=== PATIENT | female | born 1970 | race Caucasian/White ===

== ENCOUNTER 2022-07-28 20:44 | Observation (INO) ==
--- NOTE | 2022-07-28 20:52 | Emergency Department Note ---
HPI General Chief complaint: Recheck/Abnormal Lab/Rx Stated complaint: pcp want her to come low H&H labs Time Seen by Provider: 07/28/22 20:47 Source: patient Mode of arrival: ambulatory Limitations: no limitations History of Present Illness HPI Narrative: Narrative: Patient is a 52-year-old female with a history of uterine mass, menorrhagia, and anemia who presents to the emergency department due to severe anemia. She states that a month ago she was found to be anemic, and it was thought at that time that it was due to her menstrual period. She states that she did not need a transfusion at that time, but an ultrasound was ordered. This has been performed and did demonstrate a uterine mass. A referral has been placed for [facility] follow-up for this reason. She states that she again had a heavy period, and does continue to have some bleeding at this time, but she states that it is improving, and is not significant at this time. She endorses intermittent lightheadedness and dyspnea on exertion. She denies any other symptoms at this time. Related Data Home Medications Medication Instructions Recorded Confirmed diphenhydramine 25 1 tab PO QHS PRN 05/13/21 07/28/22 mg-acetaminophen 500 mg tablet (Tylenol PM Extra Strength) ascorbic acid (vitamin C) PO Q2D 07/28/22 07/28/22 biotin PO QDAY 07/28/22 07/28/22 ferrous sulfate [Iron (ferrous PO Q2D 07/28/22 07/28/22 sulfate)] [id number]-lutein PO QDAY 07/28/22 07/28/22 [Multivitamin Women 50 Plus] vitamin D3-vitamin K2 PO QDAY 07/28/22 07/28/22 Allergies Allergy/AdvReac Type Severity Reaction Status Date / Time No Known Drug Allergies Allergy Verified 07/28/22 15:07 Review of Systems ROS ROS Narrative: Narrative: Constitutional: Denies fever or weakness Eyes: Denies vision change ENT ED: Denies hearing loss Cardiovascular: Reports dyspnea on exertion; Denies chest pain, orthopnea or edema Respiratory: Denies shortness of breath or cough Gastrointestinal: Denies abdominal pain, nausea, vomiting, diarrhea, constipation, hematochezia, melena or hematemesis Genitourinary: Reports abnormal menses; Denies discharge Musculoskeletal: Denies back pain or myalgia Neurological: Reports dizziness; Denies headache, weakness, numbness, confusion or abnormal gait [facility] Narrative Patient History Narrative: Narrative: Medical/Surgical/Family History All Active Problems (Updated 07/29/22 @ 02:20 by Italo Lawson MD) Anemia (Acute) Abnormal uterine bleeding (Acute) Uterine mass (Acute) Menorrhagia (Acute) Generalized anxiety disorder (Acute) Grief (Chronic) Viral syndrome (Acute) Calcific tendonitis of right shoulder (Chronic) Impingement syndrome of left shoulder (Chronic) Shoulder pain (Chronic) Adhesive capsulitis of left shoulder (Chronic) Injury of left shoulder (Chronic) Synovitis of left shoulder (Chronic) BMI 38.0-38.9,adult (Chronic) KOFFI (obstructive sleep apnea) (Chronic) Gastroesophageal reflux disease without esophagitis (Chronic) Panic disorder (Chronic) MRSA (methicillin resistant Staphylococcus aureus) (Chronic) Depression, major, recurrent (Chronic) Knee joint pain (Chronic) Joint pain (Chronic) Anxiety (Chronic) Acid reflux (Chronic) Medical History Acid reflux Adhesive capsulitis of left shoulder Anxiety BMI 38.0-38.9,adult Calcific tendonitis of right shoulder Depression, major, recurrent Gastroesophageal reflux disease without esophagitis Impingement syndrome of left shoulder Injury of left shoulder Joint pain Knee joint pain MRSA (methicillin resistant Staphylococcus aureus) Left axillary region KOFFI (obstructive sleep apnea) Panic disorder Shoulder pain Synovitis of left shoulder Viral syndrome Surgical History History of 3 sections 89, 92, & 2004 History of bilateral tubal ligation Family History Mother Arthritis Type 2 diabetes mellitus High blood pressure Congestive heart failure Coronary artery disease Family/Other Stomach cancer Paternal grandparent Heart attack Maternal Uncle Father High blood pressure Heart attack Sleep apnea Grandfather Heart attack Maternal & Paternal Social History Smoking Status: Never smoker Alcohol Intake Frequency: a few times a month Substance Use: does not use Exam Narrative Narrative: Narrative: General Limitations: no limitations General appearance: Present alert and in no apparent distress; Absent anxious, appears intoxicated or sleepy Head Head: Present atraumatic and normocephalic Eye Eye: Present PERRL and EOMI; Absent scleral icterus or nystagmus ENT ENT: Present mucous membranes moist Neck Neck: Present full ROM and trachea midline Chest Chest: Present normal inspection and symmetric chest wall rise Respiratory Respiratory: Present normal lung sounds bilaterally; Absent respiratory distress, rales/crackles, wheezes, stridor or accessory muscle use Cardiovascular Cardiovascular: Present regular rate, normal rhythm and normal heart sounds Adbominal Abdominal: Absent distention Extremities Extremities: Present normal inspection and full ROM; Absent pedal edema or pretibial edema Back Back: Present normal inspection and full ROM Neurological Neurological: Present alert, oriented X3, CN II-XII intact, normal gait and reflexes normal; Absent motor sensory deficit Psychiatric Psychiatric: Present normal affect and normal mood Skin Skin: Present warm (WNL), dry and normal color Course Vital Signs Vital signs: Vital Signs Temperature 97.9 F 07/28/22 20:45 Pulse Rate 74 07/28/22 20:45 Respiratory Rate 18 07/28/22 20:45 Blood Pressure 118/61 07/28/22 20:45 Pulse Oximetry (%) 98 07/28/22 20:45 Oxygen Delivery Method Room Air 07/28/22 20:45 Temperature 98.6 F 07/29/22 00:49 Pulse Rate 57 L 07/29/22 00:49 Respiratory Rate 20 07/29/22 00:49 Blood Pressure 129/62 07/29/22 00:49 Pulse Oximetry (%) 100 07/29/22 00:49 Oxygen Delivery Method Room Air 07/29/22 00:49 MDM MDM Narrative Medical decision making narrative: Narrative: Patient is a 52-year-old female who presents to the emergency department due to severe anemia. This anemia is likely due to abnormal uterine bleeding. I have spoken to CLINICAL LAB CLERK and they have recommended Provera 20 mg twice daily. They asked for transfusion of 4 units of PRBCs. I have spoken to Dr. Weber regarding admission and he has agreed to admit patient. Lab Data 07/28/22 20:57 Labs: Lab Results 07/28/22 07/28/22 07/28/22 Range/Units 20:57 20:57 21:03 WBC 10.9 (4.5-11.0) K/mcL RBC 2.67 L (3.59-5.38) M/mcL Hgb 4.8 L* (11.2-15.7) g/dL Hct 18.1 L* (34.1-44.9) % POC Hct 20.0 L* (36-48) MCV 67.8 L (80.0-100.0) fL MCH 18.0 L (26.0-34.0) pg MCHC 26.5 L (31.0-36.0) g/dL RDW 19.0 H (11.5-14.5) % Plt Count 387 (140-440) K/mcL MPV 10.1 (8.8-12.5) fL Immature Gran % (Auto) 0.4 (0.0-0.5) % Neut % (Auto) 60.0 (38.0-78.0) % Lymph % (Auto) 28.8 (15.5-49.0) % [place] % (Auto) 6.5 (1.0-12.0) % Eos % (Auto) 3.7 (0.0-7.0) % Baso % (Auto) 0.6 (0.0-2.0) % Lymph # (Auto) 3.12 (1.50-4.80) K/mcL [place] # (Auto) 0.71 (0.10-0.90) K/mcL Eos # (Auto) 0.40 (0.00-0.70) K/mcL Baso # (Auto) 0.07 (0.00-0.30) K/mcL Immature Gran # 0.04 (0.00-0.05) K/mcl Absolute Neutrophils 6.51 (1.80-8.00) K/mcL PT 13.4 (11.9-14.5) sec INR 1.0 (0.9-1.1) APTT 24.0 (20.0-37.0) sec POC Sodium 140 (133-145) POC Potassium 3.9 (3.3-5.1) POC Chloride 104 (96-108) POC Total CO2 26.0 (22-30) POC Anion Gap 15.0 (8.0-16.0) POC BUN 22 H (6-20) POC Creatinine 0.7 (0.6-1.2) POC Glucose 98 (70-105) POC WB Ioniz Calcium 1.17 (1.16-1.32) Discharge Plan Patient/Caregiver Discharge Instructions Pt seen by [facility] WORKER/PA only: No Clinical Impression: Anemia, Abnormal uterine bleeding Patient Disposition: Xfer As Inpt ([facility]) Condition: Undetermined Discharge Date/Time: 07/29/22 00:49
[2022-07-28 21:05] LABS: POC Calcium, Ionized 1.17 (1.16-1.32); POC Creatinine 0.7 (0.6-1.2); POC Potassium 3.9 (3.3-5.1)
[2022-07-28] MEDS ORDERED: 0.9 % SODIUM CHLORIDE 250 ML IV SCH ×2 (21:30→23:45)
[2022-07-28] MEDS ORDERED: IBUPROFEN 600 MG TABLET PO ONE (21:58)
[2022-07-28 22:51] LABS: Basophils # (Auto) 0.07 K/mcL (0.00-0.30); Basophils % (Auto) 0.6 % (0.0-2.0); Eosinophils % (Auto) 3.7 % (0.0-7.0); Hematocrit 18.1 % (34.1-44.9); Hemoglobin 4.8 g/dL (11.2-15.7); Lymphocytes # (Auto) 3.12 K/mcL (1.50-4.80); Lymphocytes % (Auto) 28.8 % (15.5-49.0); Mean Cell Volume 67.8 fL (80.0-100.0); Mean Corpuscular HGB Conc 26.5 g/dL (31.0-36.0); Mean Platelet Volume 10.1 fL (8.8-12.5); Monocytes # (Auto) 0.71 K/mcL (0.10-0.90); Monocytes % (Auto) 6.5 % (1.0-12.0); Platelet Count 387 K/mcL (140-440); RBC 2.67 M/mcL (3.59-5.38); WBC 10.9 K/mcL (4.5-11.0)
[2022-07-28 23:11] LABS: Prothrombin Time 13.4 sec (11.9-14.5)
[2022-07-28] MEDS ORDERED: ONDANSETRON 4 MG/2 ML VIAL IV PRN (23:51)
[2022-07-29] MEDS: 0.9 % SODIUM CHLORIDE 250 ML IV SCH ×2 (00:55→01:01)
[2022-07-29] MEDS ORDERED: ACETAMINOPHEN 500 MG TABLET PO PRN (02:07)
[2022-07-29] MEDS ORDERED: ACETAMINOPHEN 500 MG TABLET PO ONE (02:13)
[2022-07-29] MEDS ORDERED: 0.9 % SODIUM CHLORIDE 250 ML IV SCH (07:30)
--- NOTE | 2022-07-29 07:45 | Internal Med History&Physical ---
HPI History of Present Illness Patient information: Note initiated : 07/29/22 at 7:39 am Service Date, if different from initiated Date: [] Patient: Bebe Bledsoe a 52 y/o F admitted on 07/29/22 for Anemia. Chief Complaint: [] History of present illness: Patient is a 52 years old female with history of uterine mass, menorrhagia, anemia, obesity, obstructive sleep apnea, depression and anxiety on sertraline, panic disorder presented with 3 to 4 days history of intermittent lightheadedness, dyspnea on exertion, presyncopal and has been feeling like passing out, apparently she was found to have anemia on outpatient lab work. Around 2 months ago patient reported she started having really heavy periods. She will have her menstruation for about 3 to 4 days. She was no longer able to use tampons due to excessive blood and clots. She reported it will start with spotting and then the second day she will have to change pads every hour. The first heavy menstruation was last month. She was seen by her primary care provider and was noted to be anemic and was started on iron supplementation and ascorbic acid on July 03 which she has been taking. She did not require any transfusion. An ultrasound was ordered and performed on 07/28 which showed a uterine mass 12 x 8 x 9.3 cm, fibroid versus cancer. Left ovary normal- appearing without any solid mass, no free pelvic fluid. A referral has been placed for [facility] follow-up for this reason. CBC showed hemoglobin 4.7 hematocrit 18. Normal renal and liver profile and electrolytes. Patient is also noted to have some irregular beats on night monitor. Review of system Constitutional: Denies fever or weakness Eyes: Denies vision change ENT ED: Denies hearing loss Cardiovascular: Reports dyspnea on exertion; Denies chest pain, orthopnea or edema Respiratory: Denies shortness of breath or cough Gastrointestinal: Denies abdominal pain, nausea, vomiting, diarrhea, constipation, hematochezia, melena or hematemesis Genitourinary: Reports abnormal menses; Denies discharge Musculoskeletal: Denies back pain or myalgia Neurological: Reports dizziness; Denies headache, weakness, numbness, confusion or abnormal gait Physical examination General General appearance: Present alert and in no apparent distress; Absent anxious, appears intoxicated or sleepy Head Head: Present atraumatic and normocephalic Eye Eye: Present PERRL and EOMI; Absent scleral icterus or nystagmus ENT ENT: Present mucous membranes moist Neck Neck: Present full ROM and trachea midline Chest Chest: Present normal inspection and symmetric chest wall rise Respiratory Respiratory: Present normal lung sounds bilaterally; Absent respiratory distress, rales/crackles, wheezes, stridor or accessory muscle use Cardiovascular Cardiovascular: Present regular rate, normal rhythm and normal heart sounds Adbominal Abdominal: Absent distention Extremities Extremities: Present normal inspection and full ROM; Absent pedal edema or pretibial edema Back Back: Present normal inspection and full ROM Neurological Neurological: Present alert, oriented X3, CN II-XII intact, normal gait and reflexes normal; Absent motor sensory deficit Psychiatric Psychiatric: Present normal affect and normal mood Skin Skin: Present warm (WNL), dry and normal color Assessment and plan Patient is a 52-year-old female who presents to the emergency department due to severe anemia. This anemia is likely due to heavy menstrual bleeding. Symptomatic anemia secondary to blood loss from menorrhagia Menorrhagia Uterine mass 12 x 8 x 9.3 cm, fibroid versus cancer. A referral has been placed for [facility] follow-up for this reason. Obstructive sleep apnea Depression and anxiety Obesity Possible arrhythmia Plan. Admit to MedSurg unit Transfuse 4 unit PRBC Continue Provera 20 mg twice daily per STRANNER Obtain EKG, telemetry Total time taken 55 minutes PFSH [facility] All Active Problems (Updated 07/29/22 @ 02:20 by Italo Lawson MD) Anemia (Acute) Abnormal uterine bleeding (Acute) Uterine mass (Acute) Menorrhagia (Acute) Generalized anxiety disorder (Acute) Grief (Chronic) Viral syndrome (Acute) Calcific tendonitis of right shoulder (Chronic) Impingement syndrome of left shoulder (Chronic) Shoulder pain (Chronic) Adhesive capsulitis of left shoulder (Chronic) Injury of left shoulder (Chronic) Synovitis of left shoulder (Chronic) BMI 38.0-38.9,adult (Chronic) KOFFI (obstructive sleep apnea) (Chronic) Gastroesophageal reflux disease without esophagitis (Chronic) Panic disorder (Chronic) MRSA (methicillin resistant Staphylococcus aureus) (Chronic) Depression, major, recurrent (Chronic) Knee joint pain (Chronic) Joint pain (Chronic) Anxiety (Chronic) Acid reflux (Chronic) Medical History Acid reflux Adhesive capsulitis of left shoulder Anxiety BMI 38.0-38.9,adult Calcific tendonitis of right shoulder Depression, major, recurrent Gastroesophageal reflux disease without esophagitis Impingement syndrome of left shoulder Injury of left shoulder Joint pain Knee joint pain MRSA (methicillin resistant Staphylococcus aureus) Left axillary region KOFFI (obstructive sleep apnea) Panic disorder Shoulder pain Synovitis of left shoulder Viral syndrome Surgical History History of 3 sections 89, 92, & 2004 History of bilateral tubal ligation Family History Mother Arthritis Type 2 diabetes mellitus High blood pressure Congestive heart failure Coronary artery disease Family/Other Stomach cancer Paternal grandparent Heart attack Maternal Uncle Father High blood pressure Heart attack Sleep apnea Grandfather Heart attack Maternal & Paternal Social History household members: family housing: house lives independently: Yes marital status: education level: high school occupational status: employed occupation: [id number] pets and animals: Yes pets and animals: cat(s), dog(s) and farm animals physical activity: none smoking status: Never smoker alcohol intake frequency: a few times a month substance use type: does not use lucas/alevism: Mormon additional history: Pt. lives with her young adult daughter and her in-laws MEDS/ALLERGIES Home Medications and Allergies Home Medications Medication Instructions Recorded Confirmed Type diphenhydramine 25 1 tab PO QHS PRN 05/13/21 07/28/22 History mg-acetaminophen 500 mg tablet (Tylenol PM Extra Strength) ascorbic acid (vitamin C) PO Q2D 07/28/22 07/28/22 History biotin PO QDAY 07/28/22 07/28/22 History ferrous sulfate [Iron (ferrous PO Q2D 07/28/22 07/28/22 History sulfate)] [id number] PO QDAY 07/28/22 07/28/22 History [Multivitamin Women 50 Plus] vitamin D3-vitamin K2 PO QDAY 07/28/22 07/28/22 History Allergies Allergy/AdvReac Type Severity Reaction Status Date / Time No Known Drug Allergies Allergy Verified 07/28/22 15:07 EXAM Constitutional Vitals: Temp Pulse Resp BP Pulse Ox O2 Del Method 98.1 F 93 H 16 122/60 100 Room Air 07/29/22 07:16 07/29/22 07:16 07/29/22 07:16 07/29/22 07:16 07/29/22 07:16 07/29/22 07:16 DATA Data Completed and Pending Labs: Labs from last 24 hours 07/28/22 07/28/22 07/28/22 21:03 20:57 20:57 WBC 10.9 RBC 2.67 L Hgb 4.8 L* Hct 18.1 L* POC Hct 20.0 L* MCV 67.8 L MCH 18.0 L MCHC 26.5 L RDW 19.0 H Plt Count 387 MPV 10.1 Immature Gran % (Auto) 0.4 Neut % (Auto) 60.0 Lymph % (Auto) 28.8 [place] % (Auto) 6.5 Eos % (Auto) 3.7 Baso % (Auto) 0.6 Lymph # (Auto) 3.12 [place] # (Auto) 0.71 Eos # (Auto) 0.40 Baso # (Auto) 0.07 Immature Gran # 0.04 Absolute Neutrophils 6.51 PT 13.4 INR 1.0 APTT 24.0 POC Sodium 140 POC Potassium 3.9 POC Chloride 104 POC Total CO2 26.0 POC Anion Gap 15.0 POC BUN 22 H POC Creatinine 0.7 POC Glucose 98 POC WB Ioniz Calcium 1.17 A/P Time Spent With Patient Time: Total time spent is greater than 50% in coordination of care (as documented) at patient's floor/unit and/or counseling patient:
[2022-07-29] MEDS: medroxyPROGESTERone 10 MG TABLET PO SCH ×2 (10:27→21:02)
[2022-07-29 14:03] LABS: Basophils # (Auto) 0.07 K/mcL (0.00-0.30); Basophils % (Auto) 0.4 % (0.0-2.0); Eosinophils % (Auto) 2.4 % (0.0-7.0); Hematocrit 29.5 % (34.1-44.9); Hemoglobin 8.9 g/dL (11.2-15.7); Lymphocytes # (Auto) 1.39 K/mcL (1.50-4.80); Lymphocytes % (Auto) 8.5 % (15.5-49.0); Mean Cell Volume 75.6 fL (80.0-100.0); Mean Corpuscular HGB Conc 30.2 g/dL (31.0-36.0); Mean Platelet Volume 9.9 fL (8.8-12.5); Monocytes # (Auto) 0.65 K/mcL (0.10-0.90); Platelet Count 315 K/mcL (140-440); WBC 16.4 K/mcL (4.5-11.0)
--- NOTE | 2022-07-29 17:40 | XRay Report ---
INDICATION: Patient meets Sepsis Criteria TECHNIQUE: AP portable upright chest x-ray COMPARISON: None FINDINGS: Lungs:Lungs are negative. No focal pulmonary parenchymal infiltrate or mass Heart, vascular:There is cardiomegaly. Pulmonary vascularity is unremarkable. No evidence for congestive heart failure Mediastinum, gabi:No mediastinal widening. No hilar mass Pleura:No pleural fluid. No pleural-based mass or calcification Skeletal:Negative. IMPRESSION: 1. Cardiomegaly without congestive heart failure 2. No acute infiltrate Interpreted and Authenticated by: William Mary 07/29/22
[2022-07-29 19:53] LABS: Appearance,Urine CLEAR (Clear); Bilirubin,Urine Negative (Negative); Color,Urine YELLOW; Culture Indicated,Urine No; Glucose,Urine (UA) Negative (Negative); Ketones,Urine Negative (Negative); Leukocyte Esterase,Urine Negative /uL (Negative); Nitrate,Urine Negative (Negative); Protein,Urine Negative (Negative); Specific Gravity,Urine 1.009 (1.000-1.035); Urine Blood Negative (Negative); Urobilinogen,Urine Negative
[2022-07-30] MEDS: medroxyPROGESTERone 10 MG TABLET PO SCH (08:45)
[2022-07-30 09:15] LABS: Basophils # (Auto) 0.06 K/mcL (0.00-0.30); Basophils % (Auto) 0.7 % (0.0-2.0); Eosinophils # (Auto) 0.35 K/mcL (0.00-0.70); Eosinophils % (Auto) 4.2 % (0.0-7.0); Hematocrit 29.8 % (34.1-44.9); Hemoglobin 8.8 g/dL (11.2-15.7); Lymphocytes # (Auto) 1.76 K/mcL (1.50-4.80); Mean Cell Volume 75.6 fL (80.0-100.0); Mean Corpuscular HGB Conc 29.5 g/dL (31.0-36.0); Mean Platelet Volume 9.8 fL (8.8-12.5); Monocytes # (Auto) 0.53 K/mcL (0.10-0.90); Monocytes % (Auto) 6.3 % (1.0-12.0); Neutrophils % (Auto) 67.4 % (38.0-78.0); Platelet Count 322 K/mcL (140-440); RBC 3.94 M/mcL (3.59-5.38); Red Cell Distribution Width 22.6 % (11.5-14.5); WBC 8.4 K/mcL (4.5-11.0)
[2022-07-30 09:53] LABS: Free T4 (Free Thyroxine) 0.91 ng/dL (0.93-1.70)
[2022-07-30 09:54] LABS: T4 (Thyroxine) 5.4 ug/dl (5.0-12.0); Thyroid Stimulating Hormone 2.47 uIU/mL (0.27-5.01)
[2022-07-30 10:03] LABS: ALT/SGPT 9 U/L (<40); AST/SGOT 15 U/L (<32); Albumin 3.3 gm/dL (3.2-5.2); Albumin/Globulin Ratio 1.4 (1.0-2.3); Alkaline Phosphatase 57 U/L (39-117); Bilirubin,Total 0.5 mg/dL (0.1-1.0); Blood Urea Nitrogen 10 mg/dL (6-20); Calcium 8.3 mg/dL (8.6-10.4); Carbon Dioxide 25 mmol/L (22-30); Chloride 105 mmol/L (96-108); Globulin 2.3 gm/dL (2.2-3.7); Glomerular Filtration Rate 110; Glucose 151 mg/dL (70-105)
--- NOTE | 2022-07-30 15:18 | Discharge Summary ---
Discharge Provider Provider IMPORTANT FOLLOW-UP INFORMATION FOR PCP: Patient information: Note initiated : 07/30/22 at 9:26 am Service Date, if different from initiated Date: [] Patient: Bebe Bledsoe 52 y/o F admitted on 07/29/22 for Anemia. Chief Complaint: [] Date of admission: 07/29/22 00:49 Discharge date: 07/30/22 Primary care physician: Estee Bojorquez PA-C Consults: 07/29/22 07:25 Consult to Physician [CONS] Routine Comment: Consulting Provider: Zach Weber Reason For Exam: Physician to Consult COURSE Hospital Course Hospital course: Patient is a 52 years old female with history of uterine mass, menorrhagia, anemia, obesity, obstructive sleep apnea, depression and anxiety on sertraline, panic disorder presented with 3 to 4 days history of lightheadedness, dyspnea on exertion, presyncopal and has been feeling like passing out, apparently she was found to have anemia on outpatient lab work. Around 2 months ago patient reported she started having really heavy periods. She will have her menstruation for about 3 to 4 days. She was no longer able to use tampons due to excessive blood and clots. She reported it would start with spotting and then the second day she will have to change pads every hour. The first heavy menstruation was last month. She was seen by her primary care provider and was noted to be anemic and was started on iron supplementation and ascorbic acid on July 03 which she has been taking. An ultrasound performed on 07/28 showed a uterine mass 12 x 8 x 9.3 cm, fibroid versus cancer. Left ovary normal- appearing without any solid mass, no free pelvic fluid. A referral has been placed for [facility] follow-up for this reason. CBC showed hemoglobin 4.7 hematocrit 18. Normal renal and liver profile and electrolytes. Case was discussed with [facility], they recommended blood transfusion and starting patient on medroxyprogesterone 20 mg twice daily to help with acute abnormal uterine bleeding. Patient was transfused 4 units PRBC, hemoglobin improved and remained stable around 8.80 upon discharge. There was some concern regarding possible arrhythmia. EKG obtained showed normal sinus rhythm without any evidence of ac sarita finding. Telemetry did not show any overt arrhythmia. Patient reported mild nervousness on Provera which is unknown and common side effect. She has been advised to monitor it at home and if bothersome discussed with PCP and [facility]. A prescription for iron sulfate 324 mg daily was given. She has a prescription for ascorbic acid from before. Patient to follow-up with [facility] and PCP as outpatient. Discharge diagnoses Symptomatic anemia secondary to blood loss from menorrhagia, status post 4 units PRBC. Hemoglobin stable at 8.8 upon discharge Menorrhagia, on Provera 20 mg twice daily for 1 week and then can reduce to 10 to 20 mg daily Uterine mass 12 x 8 x 9.3 cm, fibroid versus cancer. A referral has been placed for [facility] follow-up for this reason. Obstructive sleep apnea Depression and anxiety Obesity Possible arrhythmia Physical examination General General appearance: Present alert and in no apparent distress; Absent anxious, appears intoxicated or sleepy Head Head: Present atraumatic and normocephalic Eye Eye: Present PERRL and EOMI; Absent scleral icterus or nystagmus ENT ENT: Present mucous membranes moist Neck Neck: Present full ROM and trachea midline Chest Chest: Present normal inspection and symmetric chest wall rise Respiratory Respiratory: Present normal lung sounds bilaterally; Absent respiratory distress, rales/crackles, wheezes, stridor or accessory muscle use Cardiovascular Cardiovascular: Present regular rate, normal rhythm and normal heart sounds Adbominal Abdominal: Absent distention Extremities Extremities: Present normal inspection and full ROM; Absent pedal edema or pretibial edema Back Back: Present normal inspection and full ROM Neurological Neurological: Present alert, oriented X3, CN II-XII intact, normal gait and reflexes normal; Absent motor sensory deficit Psychiatric Psychiatric: Present normal affect and normal mood Skin Skin: Present warm (WNL), dry and normal color Total time taken 45 minutes Discharge diagnosis: Symptomatic blood loss anemia, menorrhagia, uterine mass Time Spent with Patient Time attestation: Total time spent providing and/or coordinating discharge services: Time spent: Greater than 30 minutes EXAM Constitutional Vitals: Temp Pulse Resp BP Pulse Ox O2 Del Method 98.4 F 54 L 20 120/53 100 Room Air 07/30/22 08:00 07/30/22 08:00 07/30/22 08:00 07/30/22 08:00 07/30/22 08:00 07/30/22 08:00 Discharge Data Data Completed and Pending Labs on day of discharge: Labs from last 24 hours 07/30/22 07/30/22 07/29/22 08:46 08:46 19:09 WBC 8.4 RBC 3.94 Hgb 8.8 L Hct 29.8 L MCV 75.6 L MCH 22.3 L MCHC 29.5 L RDW 22.6 H Plt Count 322 MPV 9.8 Immature Gran % (Auto) 0.4 Neut % (Auto) 67.4 Lymph % (Auto) 21.0 [place] % (Auto) 6.3 Eos % (Auto) 4.2 Baso % (Auto) 0.7 Lymph # (Auto) 1.76 [place] # (Auto) 0.53 Eos # (Auto) 0.35 Baso # (Auto) 0.06 Immature Gran # 0.03 Absolute Neutrophils 5.67 Sodium Pending Potassium Pending Chloride Pending Carbon Dioxide Pending Anion Gap Pending BUN Pending Creatinine Pending GFR Calculation Pending Glucose Pending Calcium Pending Total Bilirubin Pending AST Pending ALT Pending Alkaline Phosphatase Pending Total Protein Pending Albumin Pending Globulin Pending Albumin/Globulin Ratio Pending TSH Pending Free T4 Pending Thyroxine (T4) Pending Urine Color Yellow Urine Appearance Clear Urine pH 8.0 Ur Specific [place] 1.009 Urine Protein Negative Urine Glucose (UA) Negative Urine Ketones Negative Urine Occult Blood Negative Urine Nitrate Negative Urine Bilirubin Negative Urine Urobilinogen Negative Ur Leukocyte Esterase Negative Ur Culture Indicated? No 07/29/22 13:24 WBC 16.4 H RBC 3.90 Hgb 8.9 L Hct 29.5 L MCV 75.6 L MCH 22.8 L MCHC 30.2 L RDW 22.0 H Plt Count 315 MPV 9.9 Immature Gran % (Auto) 0.7 H Neut % (Auto) 84.0 H Lymph % (Auto) 8.5 L [place] % (Auto) 4.0 Eos % (Auto) 2.4 Baso % (Auto) 0.4 Lymph # (Auto) 1.39 L [place] # (Auto) 0.65 Eos # (Auto) 0.40 Baso # (Auto) 0.07 Immature Gran # 0.12 H Absolute Neutrophils 13.75 H Sodium Potassium Chloride Carbon Dioxide Anion Gap BUN Creatinine GFR Calculation Glucose Calcium Total Bilirubin AST ALT Alkaline Phosphatase Total Protein Albumin Globulin Albumin/Globulin Ratio TSH Free T4 Thyroxine (T4) Urine Color Urine Appearance Urine pH Ur Specific [place] Urine Protein Urine Glucose (UA) Urine Ketones Urine Occult Blood Urine Nitrate Urine Bilirubin Urine Urobilinogen Ur Leukocyte Esterase Ur Culture Indicated? Discharge Plan Patient/Caregiver Discharge Instructions Activity: increase activity as tolerated Diet: Regular Diet Instructions: Menorrhagia (GEN) Activity Restrictions/Additional Instructions: Take Provera 20 mg twice daily for 1 week and then 20 mg daily thereafter. Prescriptions: New medroxyprogesterone 10 mg Tablet 20 mg PO BID Qty: 60 0RF ferrous sulfate 325 mg (65 mg iron) tablet 325 mg PO QDAY Qty: 30 0RF Continued ascorbic acid (vitamin C) 500 mg PO Q2D vitamin D3-vitamin K2 1 tab PO QDAY biotin 1,000 mg PO QDAY [id number]-lutein [Multivitamin Women 50 Plus] 2 tab PO QDAY diphenhydramine-acetaminophen [Tylenol PM Extra Strength] 25-500 mg tablet 1 tab PO QHS PRN (Reason: Insomnia) Discontinued ferrous sulfate [Iron (ferrous sulfate)] 324 mg PO Q2D Follow Up Plan Follow up with: Estee Bojorquez PA-C [Primary Care Provider] - Patient Disposition: Home, Self-Care Prognosis: Undetermined Discharge Orders: Discharge Order (Routine); Ordered 07/30/22 Ordered By: aZch Weber
--- NOTE | 2022-08-03 07:46 | EKG ---
[facility] Test Date: 2022-07-29 Pat Name: Bebe Bledsoe Department: [facility] Room: 132 Gender: Female Systems Administrator: : 1970 Requested By: Zach Weber Order Number: [id number] Reading MD: William Thorne M.D. Measurements Intervals [place] Rate: 63 P: 48 [place]: 151 QRS: -30 QRSD: 117 T: 1 QT: 432 QTc: 441 Interpretive Statements Sinus rhythm Nonspecific intraventricular conduction delay Borderline T abnormalities, inferior leads Electronically Signed On 08-03-2022 7:46:42 PDT by William Thorne M.D. /[id number]
== END 2022-07-30 16:55 | disposition home or self-care (01) ==
LOC: ED 20:44 → MEDSUR 20:44
PROVIDERS: ADMIT Internal Medicine; ATTEND Internal Medicine